=== PATIENT | female | born 1975 | race Caucasian/White ===

== ENCOUNTER 2019-10-08 13:07 | Emergency (ER) | payer OTHER ==
[~2019-10-08] VITALS: Ht 162.6 cm; Wt 99.8 kg
[2019-10-08] MEDS ORDERED: ZOLOFT25 MG PO (13:24)
[2019-10-08] MEDS ORDERED: MIRENA1 EACH VAG (13:24)
[2019-10-08 13:34] LABS: URINE BILIRUBIN NEGATIVE (Negative); URINE BLOOD TRACE (Negative); URINE CLARITY CLEAR; URINE COLOR YELLOW; URINE GLUCOSE-RANDOM NEGATIVE (Negative); URINE KETONES NEGATIVE (Negative); URINE LEUKOCYTES-REFLEX NEGATIVE (Negative); URINE NITRITE-REFLEX NEGATIVE (Negative); URINE PROTEIN NEGATIVE (Negative); URINE UROBILINOGEN 0.2 E.U./dl (0.2-1.0)
[2019-10-08 13:37] LABS: ABSOLUTE BASOPHILS 0.1 thou/uL (0.0-0.2); ABSOLUTE EOSINOPHILS 0.1 thou/uL (0.0-0.7); ABSOLUTE LYMPHOCYTES 2.4 thou/uL (0.8-5.3); ABSOLUTE MONOCYTES 0.4 thou/uL (0.0-1.2); ABSOLUTE NEUTROPHILS 4.8 thou/uL (1.6-8.1); BASOPHILS 1.2 %; EOSINOPHILS 1.5 %; HEMATOCRIT 40.8 % (37.0-47.0); HEMOGLOBIN 14.2 gm/dL (12.0-15.0); MCH 31.2 pg (26.0-34.0); MCHC 34.8 g/dL (28.0-37.0); MCV 89.7 fL (80.0-100.0); MONOCYTES 5.4 %; MPV 7.4 fl. (7.2-11.1); NUCLEATED RBCS 0 /100WBC; PLATELET COUNT* 347 thou/uL (150-400); POLYS 60.9 %; RBC 4.55 mil/uL (4.20-5.00); RDW-CV 13.2 % (10.5-14.5); WBC 7.9 thou/uL (4.0-11.0)
[2019-10-08 13:53] LABS: CALCIUM 8.5 mg/dL (8.5-10.1); CREATININE 0.9 mg/dL (0.6-1.3); POTASSIUM 3.5 mmol/L (3.5-5.1)
[2019-10-08 13:58] LABS: ALBUMIN 3.8 g/dL (3.4-5.0); TOTAL BILIRUBIN 0.4 mg/dL (<0.1-1.0); TOTAL PROTEIN 7.4 g/dL (6.4-8.2)
[2019-10-08] MEDS ORDERED: NORCO 5-325 TA1 EAC1 PO (14:30)
[2019-10-08] MEDS ORDERED: ONDANSETRON HCL4 M2 PO (14:30)
[2019-10-08 14:39] VITALS: BP 125/70
== END 2019-10-08 14:39 | disposition home or self-care (01) ==
LOC: M.ERS 13:07
PROVIDERS: Nurse Practitioner Family
DX: R10.32 Left lower quadrant pain (principal); R35.0 Frequency of micturition; R19.7 Diarrhea, unspecified; Z88.2 Allergy status to sulfonamides; Z87.442 Personal history of urinary calculi; Z79.899 Other long term (current) drug therapy

== ENCOUNTER → 2020-06-25 | Outpatient (CLI) | payer OTHER ==
[~2020-06-25] MED LIST: MIRENA1 EACH VAG; NORCO 5-325 TA1 EAC1 PO; ONDANSETRON HCL4 M2 PO; ZOLOFT25 MG PO
== END ==
LOC: M.RAD 09:45
DX: Z12.31 Encounter for screening mammogram for malignant neoplasm of breast (principal)